=== PATIENT | male | born 1965 | race Caucasian/White ===

== ENCOUNTER 2018-09-01 15:33 | Emergency (ER) | payer BC ==
[2018-09-01] MEDS ORDERED: LIDOCAINE 1%-EPI 1:100000 30 ML MDV SUBQ STA (16:26)
[2018-09-01] MEDS ORDERED: BACITRACIN OINT TOP STA (17:01)
[2018-09-01] MEDS ORDERED: TETANUS/DIPHTHERIA/PERTUSSIS 0.5 ML SYRINGE IM ONE (17:03)
--- NOTE | 2018-09-01 17:03 | ED Physician Documentation ---
PD HPI UPPER EXT INJURY - Stated complaint Stated Complaint: R HAND LAC - Chief complaint Chief Complaint: Laceration - History obtained from History obtained from: Patient, Family - History of Present Illness Location: Right, Hand Type of injury: Laceration Where injury occurred: Home Timing - onset: How many minutes ago (Just prior to arrival.) Similar symptoms before: Has not had sx before - Additonal information Additional information: The patient is a 53-year-old male who cut his right hand on a grinding wheel just prior to arrival at home while working on a wood project. He denies any other injuries, he is right hand dominant. His last tetanus booster is unknown. He recently moved here from [place], and has no local primary physician. Review of Systems Skin: reports: Laceration (s) Musculoskeletal: reports: Extremity pain (Right hand.) Neurologic: denies: Focal weakness, Numbness PD PAST MEDICAL HISTORY - Past Medical History Past Medical History: No Cardiovascular: Hypertension Endocrine/Autoimmune: None - Present Medications Home Medications: Ambulatory Orders Medication Instructions Recorded Confirmed Losartan/Hydrochlorothiazide 1 each PO DAILY 09/01/18 09/01/18 [Losartan-Hctz 100-12.5 mg Tab] amLODIPine [Norvasc] 5 mg PO ONCE 09/01/18 09/01/18 - Allergies Allergies/Adverse Reactions: Allergies Allergy/AdvReac Type Severity Reaction Status Date / Time No Known Drug Allergies Allergy Verified 09/01/18 15:49 - Social History Does the pt smoke?: No Smoking Status: Never smoker - Immunizations Immunizations: TDAP >10years/unknown PD ED PE NORMAL - Vitals Vital signs reviewed: Yes (Vagal episode, with hypotension at triage.) - General General: Alert and oriented X 3, Well developed/nourished - HEENT HEENT: Atraumatic - Cardiac Cardiac: RRR, No murmur - Respiratory Respiratory: No respiratory distress, Clear bilaterally - Derm Derm: No rash - Extremities Extremities: Other (There is a 4 cm laceration on the dorsum of the right hand extending proximally from the base of the index finger. He has full flexion and extension of the index finger against resistance. Distal neurovascular is intact.) - Neuro Neuro: Alert and oriented X 3, No motor deficit, No sensory deficit Results - Vitals Vitals: Oxygen O2 Source Room air Procedures - Laceration (location) right hand Length in cm: 4 Wound type: Irregular, Into subcut fat Neurovascular status: Sensory intact, Motor intact, Vascular intact Tendon involvement: Tendon intact Anesthesia: Lidocaine 1% with epi Wound Preparation: Hibiclens, Irrigated copiously NS, Wound explored, To the base. 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 There is no evidence of tendon involvement, and distal neurovascular is intact. Treatment in the emergency department included thorough cleaning of the wound after local anesthetic using lidocaine with epinephrine. The wound was then repaired using 5-0 nylon simple sutures. Antibiotic ointment and gauze dressing was applied. A tetanus booster was administered. I discussed with the patient and his the expected course of healing, appropriate wound care and timing for suture removal, as well as potentially worrisome signs or symptoms that should prompt reevaluation in the emergency department. Departure - Departure Disposition: 01 Home, Self Care Clinical Impression: Laceration of right hand Qualifiers: Encounter type: initial encounter Foreign body presence: without foreign body Qualified Code(s): S61.411A - Laceration without foreign body of right hand, initial encounter Condition: Stable Instructions: ED Laceration Hand Comments: Keep the wound clean, and apply antibiotic ointment daily. You can use ibuprofen, up to 800 mg 3 times daily if needed for pain. Keep your right hand elevated as much of the time as possible. Follow-up for suture removal in about 12 days. Return to the emergency department sooner if you develop any sign of infection, or otherwise worsening symptoms. Discharge Date/Time: 09/01/18 17:14
[2018-09-01 17:11] VITALS: BP 110/85
== END 2018-09-01 17:14 | disposition home or self-care (01) ==
LOC: ED 15:33
DX: S61.411A Laceration without foreign body of right hand, initial encounter (principal); W31.2XXA Contact with powered woodworking and forming machines, initial encounter; Y92.009 Unspecified place in unspecified non-institutional (private) residence as the place of occurrence of the external cause; Z23 Encounter for immunization
CPT/HCPCS: 12002; 90471; 90715; 99282; 99283; A9270

== ENCOUNTER 2019-07-20 12:35 | Outpatient (CLI) | payer OTHER ==
[2019-07-20 13:05] LABS: CREATININE 0.7 mg/dL (0.6-1.2)
== END 2019-07-20 12:36 | disposition home or self-care (01) ==
LOC: LAB 12:35
PROVIDERS: ATTEND Internal Medicine
DX: I10 Essential (primary) hypertension (principal)
CPT/HCPCS: 36415; 80048

== ENCOUNTER 2019-09-17 11:24 | Outpatient (CLI) | payer OTHER ==
[2019-09-17 11:55] LABS: CALCIUM 9.2 mg/dL (8.5-10.3); CREATININE 0.6 mg/dL (0.6-1.2)
== END 2019-09-17 11:25 | disposition home or self-care (01) ==
LOC: LAB 11:24
PROVIDERS: ATTEND Physician Assistant Medical
DX: I10 Essential (primary) hypertension (principal); I48.91 Unspecified atrial fibrillation
CPT/HCPCS: 36415; 80048

== ENCOUNTER 2020-04-28 15:30 | Outpatient (CLI) | payer OTHER ==
[2020-04-28 18:15] LABS: CALCIUM 8.9 mg/dL (8.5-10.3); CREATININE 0.6 mg/dL (0.6-1.2)
== END 2020-04-28 15:31 | disposition home or self-care (01) ==
LOC: LAB 15:30
PROVIDERS: ATTEND Physician Assistant Medical
DX: I10 Essential (primary) hypertension (principal)
CPT/HCPCS: 36415; 80048

== ENCOUNTER 2020-05-09 12:49 | Outpatient (CLI) | payer OTHER | END 2020-05-09 12:50 | disposition home or self-care (01) | LOC: LAB 12:49 | PROVIDERS: ATTEND Nurse Practitioner | DX: I10 Essential (primary) hypertension (principal) | CPT/HCPCS: 36415; 84132 ==

== ENCOUNTER 2020-12-24 15:28 | Outpatient (CLI) | payer OTHER ==
[2020-12-24 16:01] LABS: CALCIUM 9.7 mg/dL (8.5-10.3); CREATININE 0.8 mg/dL (0.6-1.2); POTASSIUM 3.9 mmol/L (3.5-5.0)
== END 2020-12-24 15:29 | disposition home or self-care (01) ==
LOC: LAB 15:28
PROVIDERS: ATTEND Nurse Practitioner
DX: I10 Essential (primary) hypertension (principal)
CPT/HCPCS: 36415; 80048

== ENCOUNTER 2022-02-02 12:46 | Outpatient (CLI) | payer OTHER ==
[2022-02-02 13:11] LABS: ALBUMIN 4.3 g/dL (3.2-5.5); BILIRUBIN,TOTAL 0.9 mg/dL (0.2-1.0); CALCIUM 9.1 mg/dL (8.5-10.3); CREATININE 0.7 mg/dL (0.6-1.2); POTASSIUM 3.9 mmol/L (3.5-5.0); TOTAL PROTEIN 6.5 g/dL (6.7-8.2)
== END 2022-02-02 12:47 | disposition home or self-care (01) ==
LOC: LAB 12:46
PROVIDERS: ATTEND Physician Assistant
DX: I48.91 Unspecified atrial fibrillation (principal)
CPT/HCPCS: 36415; 80053

== ENCOUNTER 2022-03-23 11:33 | Outpatient (CLI) | payer OTHER ==
[2022-03-23 12:00] LABS: CALCIUM 9.3 mg/dL (8.5-10.3); CREATININE 0.9 mg/dL (0.6-1.2); POTASSIUM 4.5 mmol/L (3.5-5.0)
== END 2022-03-23 11:34 | disposition home or self-care (01) ==
LOC: LAB 11:33
PROVIDERS: ATTEND Internal Medicine Cardiovascular Disease
DX: I48.0 Paroxysmal atrial fibrillation (principal)
CPT/HCPCS: 36415; 80048

== ENCOUNTER 2022-05-10 12:04 | Outpatient (CLI) | payer OTHER ==
[2022-05-10 12:30] LABS: CALCIUM 9.6 mg/dL (8.5-10.3); CREATININE 0.8 mg/dL (0.6-1.2); POTASSIUM 4.6 mmol/L (3.5-5.0)
== END 2022-05-10 12:05 | disposition home or self-care (01) ==
LOC: LAB 12:04
PROVIDERS: ATTEND Internal Medicine Cardiovascular Disease
DX: I48.0 Paroxysmal atrial fibrillation (principal)
CPT/HCPCS: 36415; 80048

== ENCOUNTER 2022-10-29 16:17 | Emergency (ER) | payer OTHER ==
--- NOTE | 2022-10-29 16:46 | ED Physician Documentation ---
History of Present Illness - Stated complaint Stated Complaint: BP LOW/HR HIGH - Chief complaint Chief Complaint: Cardiac - History obtained from History obtained from: Patient - Additonal information Additional information: 57-year-old gentleman is about 2 weeks out from an aortic root repair, not a valve repair in contrast to the nurses notes, with concomitant Maze procedure. He was doing very well postop until yesterday and now has worsening dyspnea, lightheadedness, lowish blood pressures at home in the range of 90/60 and heart rates near 100. PD PAST MEDICAL HISTORY - Past Medical History Cardiovascular: Hypertension Endocrine/Autoimmune: None - Present Medications Home Medications: Ambulatory Orders Medication Instructions Recorded Confirmed Losartan/Hydrochlorothiazide 1 each PO DAILY 09/01/18 09/01/18 [Losartan-Hctz 100-12.5 mg Tab] amLODIPine [Norvasc] 5 mg PO ONCE 09/01/18 09/01/18 - Allergies Allergies/Adverse Reactions: Allergies Allergy/AdvReac Type Severity Reaction Status Date / Time No Known Drug Allergies Allergy Verified 10/29/22 16:22 - Social History Does the pt smoke?: No Smoking Status: Never smoker - Immunizations Immunizations: TDAP >10years/unknown PD ED PE NORMAL - Vitals Vital signs reviewed: Yes - General General: Alert and oriented X 3, No acute distress - HEENT HEENT: PERRL, EOMI - Neck Neck: Supple, no meningeal sign, No bony TTP - Cardiac Cardiac: Other (Borderline tachycardia, regular, well-healed sternotomy scar.) - Respiratory Respiratory: No respiratory distress, Clear bilaterally - Abdomen Abdomen: Non tender - Back Back: No CVA TTP, No spinal TTP - Derm Derm: Normal color, Warm and dry - Extremities Extremities: No edema, No calf tenderness / cord - Neuro Neuro: Alert and oriented X 3, Normal speech Results - Vitals Vitals: Vital Signs - 24 hr 10/29/22 16:22 Temperature 36.5 C Heart Rate 100 Respiratory 16 Rate Blood Pressure 123/83 H O2 Saturation 98 Oxygen O2 Source Room air - EKG (time done) 1717 EKG releavant findings:: EKG personally interpreted by author of this note. Relevant findings are: Rate: Rate (enter#) (100) Rhythm: Sinus tachycardia [place]: Normal Intervals: Prolonged QT QRS: Low voltage Ischemia: Non specific changes Compare to prior EKG: Old EKG unavailable Computer interpretation: Agree with computer - Labs Labs: Laboratory Tests 10/29/22 10/29/22 17:13 17:13 WBC 13.2 H RBC 4.40 L Hgb 12.7 L Hct 37.7 L MCV 85.7 MCH 28.9 MCHC 33.7 RDW 12.1 Plt Count 476 H MPV 9.6 Sodium 135 Potassium 3.9 Chloride 100 L Carbon Dioxide 24 Anion Gap 11.0 BUN 16 Creatinine 0.7 Estimated GFR (MDRD) 116 Glucose 132 H Calcium 8.7 Magnesium 2.0 Total Bilirubin 0.8 AST 25 ALT 53 Alkaline Phosphatase 81 Total Protein 6.6 L Albumin 3.2 Globulin 3.4 Albumin/Globulin Ratio 0.9 L PD Medical Decision Making - ED course ED course: Bedside limited echocardiogram was done on initial evaluation with the specific question of whether or not he has a pericardial effusion, he does have a mod erate pericardial effusion. [facility] was called for consultation and likely transfer. 57-year-old gentleman 2 weeks out from aortic root repair with maze procedure now with lower blood pressures and modest tachycardia and bedside ultrasound concerning for an effusion. Case discussed by phone with Dr. Courtney, his surgeon at 5:30 PM and he accepts in transfer. Departure - Departure Disposition: 02 Transfer Acute Care Hosp Clinical Impression: Pericardial tamponade Condition: Serious
--- NOTE | 2022-10-29 17:05 | XRAY Report ---
PROCEDURE: Chest 1 View X-Ray INDICATIONS: dyspnea TECHNIQUE: One view of the chest was acquired. COMPARISON: None. FINDINGS: Surgical changes and devices: Midline sternotomy, mitral clip. Lungs and pleura: Question approximately 2 cm left lung mass. No acute infiltrates. Mediastinum: Mediastinal contours appear normal. Cardiomegaly. Bones and chest wall: No suspicious bony lesions. Overlying soft tissues appear unremarkable. IMPRESSION: 1. Cardiomegaly. 2. Possible 2 cm left lung mass. Recommend CT chest. Reviewed by: Sarwat Vincent MD on 10/29/2022 5:04 PM PDT Approved by: Sarwat Vincent MD on 10/29/2022 5:04 PM PDT Station ID: [id number]
[2022-10-29] MEDS ORDERED: SODIUM CHLORIDE 0.9% 1,000 ML IV STA (17:20)
[2022-10-29 17:21] LABS: BASOPHILS % (AUTO) 0.3 %; EOSINOPHILS % (AUTO) 0.4 %; HCT - HEMATOCRIT 37.7 % (42.0-52.0); HGB - HEMOGLOBIN 12.7 g/dL (14.0-18.0); LYMPHOCYTES % (AUTO) 10.6 %; MEAN CORPUSCULAR HEMOGLOBIN 28.9 pg (27.0-31.0); MEAN CORPUSCULAR HGB CONC 33.7 g/dL (32.0-36.0); MEAN CORPUSCULAR VOLUME 85.7 fL (80.0-94.0); MEAN PLATELET VOLUME 9.6 fL (7.4-11.4); MONOCYTES % (AUTO) 11.5 %; NEUTROPHILS % (AUTO) 76.5 %; PLT - PLATELET COUNT 476 10^3/uL (130-450); RED CELL DISTRIBUTION WIDTH 12.1 % (12.0-15.0); WHITE BLOOD COUNT 13.2 x10^3/uL (4.8-10.8)
[2022-10-29 17:22] LABS: ABNORMAL LYMPHS % (MANUAL) 0 %
[2022-10-29 17:33] LABS: ALBUMIN 3.2 g/dL (3.2-5.5); ALBUMIN/GLOBULIN RATIO 0.9 (1.0-2.2); BILIRUBIN,TOTAL 0.8 mg/dL (0.2-1.0); CALCIUM 8.7 mg/dL (8.5-10.3); CREATININE 0.7 mg/dL (0.6-1.2); POTASSIUM 3.9 mmol/L (3.5-5.0); TOTAL PROTEIN 6.6 g/dL (6.7-8.2)
[2022-10-29 18:04] LABS: BAND NEUTROPHILS % (MANUAL) 1 %; LYMPHOCYTES # (MANUAL) 1.5 10^3/uL (1.5-3.5); LYMPHOCYTES % (MANUAL) 6 %; NEUTROPHILS # (MANUAL) 9.8 10^3/uL (1.5-6.6); REACTIVE LYMPHS % (MANUAL) 5 %
[2022-10-29 18:05] LABS: DIFFERENTIAL COMMENT MANUAL DIFFERENTIAL; PLATELET ESTIMATE, MANUAL INCREASED (>450,000) (NORMAL); PLATELET MORPHOLOGY NORMAL APPEARANCE (NORMAL); RBC MORPHOLOGY (MULTIPLE) NORMAL APPEARANCE (NORMAL)
[2022-10-29 18:53] VITALS: BP 128/93
== END 2022-10-29 19:00 | disposition short-term general hospital (02) ==
LOC: ED 16:17
DX: I31.39 Other pericardial effusion (noninflammatory) (principal); I31.4 Cardiac tamponade; Z20.822 Contact with and (suspected) exposure to COVID-19
CPT/HCPCS: 36415; 80053; 83735; 85025; 93005; 96360; 99285

== ENCOUNTER 2022-10-29 19:01 | Outpatient (CLI) | payer OTHER | END 2022-10-29 23:59 | disposition short-term general hospital (02) | LOC: EMS 19:01 | PROVIDERS: ATTEND Emergency Medicine | DX: I31.4 Cardiac tamponade (principal) | CPT/HCPCS: A0425; A0426 ==

== ENCOUNTER 2024-04-06 09:22 | Outpatient (CLI) | payer OTHER ==
[2024-04-06 10:13] LABS: ALBUMIN 4.4 g/dL (3.2-5.5); ALBUMIN/GLOBULIN RATIO 2.1 (1.0-2.2); ALKALINE PHOSPHATASE 67 IU/L (42-121); ALT ALANINE AMINOTRANSFERASE 25 IU/L (10-60); AST ASPARTATE AMINOTRANSFERASE 24 IU/L (10-42); BILIRUBIN,TOTAL 0.9 mg/dL (0.2-1.0); BUN - BLOOD UREA NITROGEN 15 mg/dL (6-20); CALCIUM 9.4 mg/dL (8.5-10.3); CARBON DIOXIDE - CO2 30 mmol/L (21-32); CHLORIDE 105 mmol/L (101-111); CHOL/HDL RATIO 5.6 (<5.0); CHOLESTEROL 208 mg/dL; CREATININE 0.7 mg/dL (0.6-1.3); GFR - MDRD 116 (>89); GLUCOSE 92 mg/dL (74-104); HDL CHOLESTEROL 37 mg/dL; LDL CHOLESTEROL,CALCULATED 130 mg/dL; LDL/HDL RATIO 3.5 (<3.6); POTASSIUM 3.9 mmol/L (3.5-4.5); SODIUM 140 mmol/L (135-145); TOTAL PROTEIN 6.5 g/dL (6.4-8.9); TRIGLYCERIDES 204 mg/dL; VLDL CHOLESTEROL 41 mg/dL
== END 2024-04-06 09:23 | disposition home or self-care (01) ==
LOC: LAB 09:22
PROVIDERS: ATTEND Internal Medicine Cardiovascular Disease
DX: I48.0 Paroxysmal atrial fibrillation (principal); I25.10 Atherosclerotic heart disease of native coronary artery without angina pectoris; I71.21 Aneurysm of the ascending aorta, without rupture
CPT/HCPCS: 36415; 80053; 80061; 83721